=== PATIENT | female | born 1970 | race Caucasian/White ===

== ENCOUNTER 2018-10-12 16:17 | Emergency (ER) | payer OTHER ==
[~2018-10-12] VITALS: Ht 157.5 cm; Wt 65.8 kg
[2018-10-12 16:17] VITALS: BP_SYST 128
[2018-10-12] MEDS ORDERED: TETRACAINE HCL 0.5% OPHTHALMIC DROPS 15 ML OP ONE (16:18)
[2018-10-12] MEDS ORDERED: FLUORESCEIN SODIUM 1 MG OPHTHALMIC STRIP OP ONE (16:18)
[2018-10-12 17:30] VITALS: BP_SYST 128
== END 2018-10-12 17:30 | disposition home or self-care (01) ==
LOC: SED 16:17
DX: S05.02XA Injury of conjunctiva and corneal abrasion without foreign body, left eye, initial encounter (principal); Z88.2 Allergy status to sulfonamides; W22.8XXA Striking against or struck by other objects, initial encounter; Y93.89 Activity, other specified; Y92.89 Other specified places as the place of occurrence of the external cause; Y99.8 Other external cause status
CPT/HCPCS: 99283